=== PATIENT | male | born 1955 | race Caucasian/White ===

== ENCOUNTER 2024-03-28 12:52 | Outpatient (AMB) | payer MEDICARE, BC, SELFPAY ==
--- NOTE | 2024-03-28 13:00 | A.OFFVIS_ITS ---
Vital Signs 03/28/24 13:10 Height 5 ft 7 in Weight 153 lb 6 oz BMI 24.0 BP 112/76 Blood Pressure Location Rt brachial Position Sitting Respiration 16 Pulse 85 Pulse Source Pulse Oximeter Pulse Oximetry (%) 97 Oxygen Delivery Method Room Air Intake Visit Reasons: ENP: Progressive supranuclear palsy - Confirmed Intake Note: Pt presents to the office for new pt evaluation for progressive supranuclear palsy. Academic Affairs Assistant Required: No Allergies No Known Allergies Allergy (Verified 03/28/24 13:09) Medication List - Last Reconciled 03/28/24 by Divya Nolasco MD carbidopa-levodopa 25-100 mg 1 tab PO QID multivitamin 1 tab PO DAILY psyllium husk (Daily Fiber) 0.4 grams PO DAILY pyridoxine (vitamin B6) 10 mg PO DAILY rivastigmine tartrate 3 mg PO BID Saccharomyces boulardii (Daily Probiotic (S. boulardii)) 250 mg PO BID trazodone 25 mg PO DAILY HPI Comments Details: 68y/o male comes for further management of Progressive Supranuclear Palsy . He was diagnosed by Dr. Small in 2021 when he presented with unsteady gait, falls etc.He was started on carbidopa/levodopa . He later saw Dr. Padron at [facility] . He had multiple scans and ? skin biopsy. He lives with his daughter since 2022 He reports mild memory issues.He has mild word finding difficulties and stutters, Sleep is ok .He has vivid dreams and says woke up one night laughing. His mood is Ok and he is less motivated. He goes to weekly card games, exercises.He has excessive drooling Speech- softer, stutters He has difficulty with hand writing, using utensils, dressing , showering. His gait is slow and off balance . He has frequent falls- last fall was 3 weeks ago- he played volleyball in his back yard. No dizziness , no double vision . He denies constipation He has urinary urgency He denies hallucinations He had mild sleep apnea. [facility] Medical History (Updated 03/28/24 @ 13:43 by Divya Nolasco MD) Cognitive change Parkinsonism Insomnia IBS (irritable bowel syndrome) BPH (benign prostatic hyperplasia) Diverticulitis Family History (Updated 03/28/24 @ 13:15 by Shilpa Peña CMA) Father No problems noted. Mother No problems noted. Social History (Updated 03/28/24 @ 13:16 by Shilpa Peña CMA) Household Members: Children Household Members Other:: Daughter- Elisabet Housing: House Alcohol intake: never Patient Tobacco Use Status: Never used Tobacco Use of substances other than those prescribed or required for medical reasons: No Physical Exam Vital Signs: Last Vital Signs Pulse 85 03/28/24 13:10 Resp 16 03/28/24 13:10 BP 112/76 03/28/24 13:10 Pulse Ox 97 03/28/24 13:10 Oxygen Delivery Method Room Air 03/28/24 13:10 BMI result Body Mass Index 24.0 Const General: cooperative, healthy appearing and no acute distress Nutritional Appearance: average body habitus Orientation/consciousness: patient oriented x3 HEENT Head: Yes normal to inspection Neck Other: mild antecollis and restricted range of motion Neuro Other: Severely decreased blink and facial expression Voice- normal, dysprosody Mild arpit postural tremors Fine Finger movements - decreased R>L Alternating hand movements - decreased arpit Hand movements - decreased arpit Foot taps- decreased arpit Arpit cogwheel rigidity gait - stooped, mild slowness and decreased arm swing R>L, off balance General: patient oriented x3 and no focal motor deficits Cranial nerves: Yes CN's II-XII intact bilaterally, Yes Bilaterally intact EOM present, Yes Normal facial strength present and Yes Midline tongue present Cognition (Neuro): normal cognition Gait exam (Neuro): Shuffling gait present Motor exam (neuro): 5/5 motor strength present throughout Deep tendon reflexes (DTR's): Right triceps reflex intensity grade: 2+, Left triceps reflex intensity grade: 2+, Rt Biceps (C5, C6): 2+, Left biceps reflex intensity grade: 2+, Right brachioradialis reflex intensity grade: 2+, Left brachioradialis reflex intensity grade: 2+, Right patellar reflex intensity grade: 2+ and Left patellar reflex intensity grade: 2+ Coordination: [id number] test normal Assessment & Plan Assessment & Plan (1) Parkinsonism: Comment: ? PSP ( had skin biopsy ) c/w PSP as per patient , frequent falls Code(s): G20.C - Parkinsonism, unspecified Category: Medical (2) Cognitive change: Code(s): R41.89 - Other symptoms and signs involving cognitive functions and awareness Category: Medical Plan Increase carbidopa/levodopa 25/100 1 1/2 tabs qid PT for gait Will continue rivastigmine 3mg bid Orders: Orders PT Evaluation and Treatment Today G20.C - Parkinsonism, unspecified Medications: New carbidopa-levodopa 25-100 mg 1.5 tabs PO QID 180 tabs 6RF Coding Level of Care Code New Pt Level 4 (13144) Complex EM visit Add On G2211 Diagnoses Parkinsonism G20.C Cognitive change R41.89
[2024-03-28 13:10] VITALS: BP 112/76; PULSE 85; RESP 16; O2SAT 97; BMI 24.0
== END 2024-03-28 13:56 | disposition home or self-care (01) ==
PROVIDERS: Visit Provider Psychiatry & Neurology Neurology
DX: G20.C Parkinsonism, unspecified (principal); R41.89 Other symptoms and signs involving cognitive functions and awareness
CPT/HCPCS: 99204; G2211

== ENCOUNTER → 2024-03-28 12:52 | Outpatient (BNVA) | payer MEDICARE, BC, SELFPAY | PROVIDERS: Visit Provider Psychiatry & Neurology Neurology | DX: G20.C Parkinsonism, unspecified (principal); R41.89 Other symptoms and signs involving cognitive functions and awareness; Z79.899 Other long term (current) drug therapy | CPT/HCPCS: 99202 ==

== ENCOUNTER 2024-04-19 09:50 | Outpatient (RCR) | payer MEDICARE, BC, SELFPAY ==
--- NOTE | 2024-04-19 11:35 | MHC.PT.EP ---
[facility] [place] Office [place] Office [place] Office [address] Christian Mason [address] [phone] F: [phone] F: [phone] F: [phone] F: [phone] Physical Therapy Plan of Care Date of Evaluation: 04/19/24 Date of Surgery: Diagnosis: Progressive Supranuclear palsy - Gait and balance for parkinsonism. Assessment: Patient is a 68 year old R handed male who presents with s/s consistent with PSP, parkinsonian symptoms. He does not work and has been riddled with falls over the course of the last year. Patient past medical history includes insomnia and IBS. Current impairments include pain, posture, ROM, strength, balance, safety, independence, activity tolerance and functional mobility. Functional limitations include decreased ability to transfer, walk, stand, perform indoor and outdoor activities and negotiate stairs. Patient is motivated with good rehab potential. Skilled PT will address impairments and functional limitations in order to achieve goals. Frequency and Duration: The patient will be seen 2x/week for 5 weeks Short Term Goals: I with HEP - 2 weeks reduced frequency of falls - 3 weeks min tightness in b/l hamstring and gastroc - 3 weeks Custodial Goals: continued reduced frequency of falls - 5 weeks LE strength 4+/5 grossly - 5 weeks SLB > 30 seconds b/l on firm - 5 weeks Treatment Plan: Modalities to reduce pain, spasms and effusion. Manual therapy to restore motion and function. Therapeutic exercise to improve strength and flexibility. Neuromuscular re-education for posture and balance. Therapeutic activities to return to functional activities of daily living. Electronically signed by: Dillan Mcduffie, PT Please sign and return to therapist. Thank you for your referral.
--- NOTE | 2024-07-07 06:37 | MHC.PT.DC ---
[facility] [place] Office [place] Office [place] Office [address] Christian Mason [address] [phone] F: [phone] F: [phone] F: [phone] F: [phone] Physical Therapy Discharge Report Diagnosis: Progressive Supranuclear palsy - Gait and balance for parkinsonism. Date of Surgery: Date of Evaluation: 04/19/24 Date of Discharge: 05/08/24 Treatments to Date: 1 Cancellations to Date: No Shows to Date: Discharge Status: Patient Elected to Stop Discharge Summary: Patient is a 68 year old R handed male who presents with s/s consistent with PSP, parkinsonian symptoms. He does not work and has been riddled with falls over the course of the last year. Patient past medical history includes insomnia and IBS. Current impairments include pain, posture, ROM, strength, balance, safety, independence, activity tolerance and functional mobility. Functional limitations include decreased ability to transfer, walk, stand, perform indoor and outdoor activities and negotiate stairs. Patient is motivated with good rehab potential. Skilled PT will address impairments and functional limitations in order to achieve goals. Electronically signed by: Dillan Mcduffie, PT Please sign and return to therapist. Thank you for your referral.
== END 2024-07-07 06:38 | disposition home or self-care (01) ==
LOC: HO.PTCHIC 09:50
PROVIDERS: PCP Internal Medicine; Visit Provider Psychiatry & Neurology Neurology
DX: G20.C Parkinsonism, unspecified (principal)
CPT/HCPCS: 97163

== ENCOUNTER 2024-09-11 11:21 | Outpatient (AMB) | payer MEDICARE, SELFPAY ==
--- NOTE | 2024-09-11 11:30 | MHC.OFFVIS ---
Vital Signs 09/11/24 11:31 Height 5 ft 7 in Weight 145 lb BMI 22.7 BP 138/84 Blood Pressure Location Lt brachial Position Sitting Pulse 87 Pulse Source Pulse Oximeter Pulse Oximetry (%) 100 Oxygen Delivery Method Room Air Intake Visit Reasons: Progressive supranuclear palsy Allergies No Known Allergies Allergy (Verified 09/11/24 11:33) Medication List - Last Reconciled 09/11/24 by Divya Nolasco MD carbidopa-levodopa 25-100 mg 1.5 tabs PO QID melatonin ER 3 mg PO BEDTIME multivitamin 1 tab PO DAILY psyllium husk (Daily Fiber) 0.4 grams PO DAILY pyridoxine (vitamin B6) 10 mg PO DAILY quetiapine 25 mg PO BEDTIME rivastigmine tartrate 3 mg PO BID Saccharomyces boulardii (Daily Probiotic (S. boulardii)) 250 mg PO BID vibegron (Gemtesa) 75 mg PO DAILY HPI Comments Details: 69y/o male comes for follow up of Progressive Supranuclear Palsy . He has frequent near falls and bumping into gutierrez.He has a walker and cane but does not use it . He feels more foggy . His memory is good. He exercises and also goes out to play cards with his friends and brother. He sleeps OK . History from initial visit- He was diagnosed by Dr. Small in 2021 when he presented with unsteady gait, falls etc.He was started on carbidopa/levodopa . He later saw Dr. Padron at [facility] . He had multiple scans and ? skin biopsy. He lives with his daughter since 2022 He reports mild memory issues.He has mild word finding difficulties and stutters, Sleep is ok .He has vivid dreams and says woke up one night laughing. His mood is Ok and he is less motivated. He goes to weekly card games, exercises.He has excessive drooling Speech- softer, stutters He has difficulty with hand writing, using utensils, dressing , showering. His gait is slow and off balance . He has frequent falls- last fall was 3 weeks ago- he played volleyball in his back yard. No dizziness , no double vision . He denies constipation He has urinary urgency He denies hallucinations He had mild sleep apnea. [facility] Medical History Cognitive change Parkinsonism Insomnia IBS (irritable bowel syndrome) BPH (benign prostatic hyperplasia) Diverticulitis Family History Father No problems noted. Mother No problems noted. Social History Household Members: Children Household Members Other:: Daughter- Elisabet Housing: House Alcohol intake: never Patient Tobacco Use Status: Never used Tobacco Physical Exam Vital Signs: Last Vital Signs Pulse 87 09/11/24 11:31 BP 138/84 09/11/24 11:31 Pulse Ox 100 09/11/24 11:31 Oxygen Delivery Method Room Air 09/11/24 11:31 BMI result Body Mass Index 22.7 Const General: cooperative, healthy appearing and no acute distress Nutritional Appearance: average body habitus Orientation/consciousness: patient oriented x3 HEENT Head: Yes normal to inspection Neck Other: mild antecollis and restricted range of motion Neuro Other: Severely decreased blink and facial expression Voice- normal, dysprosody Mild arpit postural tremors Fine Finger movements - decreased R>L Alternating hand movements - decreased arpit Hand movements - decreased arpit Foot taps- decreased arpit Arpit cogwheel rigidity gait - stooped, mild slowness and decreased arm swing R>L, off balance General: patient oriented x3 and no focal motor deficits Cranial nerves: Yes CN's II-XII intact bilaterally, Yes Bilaterally intact EOM present, Yes Normal facial strength present and Yes Midline tongue present Cognition (Neuro): normal cognition Gait exam (Neuro): Shuffling gait present Motor exam (neuro): 5/5 motor strength present throughout Coordination: [id number] test normal Orientation What is the (year) (season) (date) (day) (month)?: year, season, date, day and month Where are we (state) (county) (town or city) (hospital) (floor)?: state, county, town or city, hospital/clinic and floor Registration Name of 3 unrelated objects clearly and slowly, then ask patient to repeat all 3 of them. (1st repeat determines score. Make sure they can repeat all three): object 1, object 2 and object 3 Attention & Calculation (CHOOSE ONE) Spell WORLD backwards (DLROW): 5 letters Recall Ask patient to repeat the 3 items from question #3.: object 1 and object 2 Language Show patient a wristwatch & ask what it is. Repeat for pencil.: watch and pencil Ask the patient to repeat the phrase 'No ifs, ands, or buts' after you.: correct Ask the patient to 'take a piece of paper with their right hand' 'fold paper in half' 'place paper on floor': take paper in right hand, fold paper in half and place paper on floor Print the sentence 'CLOSE YOUR EYES' on a piece. If patient actually closes eyes then score.: followed written direction Give patient a blank piece of paper & ask to write a sentence. Score if it contains a noun & verb.: sentence contains subject and verb Ask patient to copy figure of intersecting pentagons exactly. Score if all 10 angles & 2 intersects are included.: all 10 angles present & 2 are intersected Score Score: 29 Assessment & Plan Assessment & Plan (1) Parkinsonism: Comment: ( had skin biopsy ) c/w PSP as per patient , frequent falls Code(s): G20.C - Parkinsonism, unspecified Category: Medical Qualifiers: Parkinsonism type: primary Parkinsonism Qualified Code(s): G20.C - Parkinsonism, unspecified (2) Cognitive change: Code(s): R41.89 - Other symptoms and signs involving cognitive functions and awareness Category: Medical Plan Continue carbidopa/levodopa 25/100 - 1.5 tabs qid PT for gait- continues to do his exercises. Will continue rivastigmine 3mg bid discussed about using a walker to prevent falls Coding Level of Care Code Est Pt Level 4 (98542) Complex EM visit Add On G2211 Diagnoses Primary parkinsonism G20.C Parkinsonism type: primary Parkinsonism Cognitive change R41.89
[2024-09-11 11:31] VITALS: BP 138/84; PULSE 87; O2SAT 100; BMI 22.7
--- OUTSIDE RECORDS SUMMARY | 2024-09-11 13:07 | XMS_ITS | Clinical Summary ---
Author Organization Unknown Care Team Providers Care Billing Auditor Name Role Phone JOE JULIO, ABDELRAHMAN Unavailable Unavailable CHERELLE RN, TRAV Unavailable Unavailable YANET PT, ALEX Unavailable Unavailable Payers Payer Name Policy Type Policy Number Effective Date Expira tion Date MEDICARE - [place] - PDGM [id number] Problems Condition Name Condition Details Condition Category Status Onset Date Resolution Date Last Treatment Date Treating Clinician Comments COVID-19 Active 09-06 00:00: 00 PROGRESSIVE SUPRANUCLEAR OPHTHALMOPLE ROBERT Active 09-06 00:00: 00 GASTRO-ESOPH AGEAL REFLUX DISEASE WITHOUT ESOPHAGITIS Active 09-06 00:00: 00 PARKINSON'S DIS W/O DYSKINESIA, W/O MENTION OF FLUCTUATIONS Active 09-06 00:00: 00 PERSONAL HISTORY OF PNEUMONIA (RECURRENT) Active 09-06 00:00: 00 Allergies, Adverse Reactions, Alerts Allergy Name Allergy Type Status Severity Reaction(s) Onset Date Inactive Date Treating Clinician Comments SHELL FISH Propensity to adverse reactions Active 2024-04 08:54:0 8 Medications Ordered Medication Name Filled Medication Name Start Date Stop Date Current Medication? Ordering Clinician Indication Dosage Frequency Signature (SIG) Comments Components azithromyci n 250 mg tablet 04-30 00:00: 00 05-05 23:59 :00 No [id number] 1 tablet DAILY 1 tablet DAILY (route: oral) Med Classific ation: Anti-Infe ctive Agents prednisone 20 mg tablet 04-30 00:00: 00 05-05 23:59 :00 No [id number] 2 tablet DAILY 2 tablet DAILY (route: oral) Med Classific ation: Endocrine quetiapine 25 mg tablet 04-10 00:00: 00 05-04 00:00 :00 No [id number] Per instruc tions Per instructio ns (route: oral) Med Classific ation: Central Nervous System Agents trazodone 50 mg tablet 04-06 00:00: 00 Yes [id number] 1 tablet DAILY AT BEDTIME 1 tablet DAILY AT BEDTIME (route: oral) Med Classific ation: Central Nervous System Agents carbidopa 25 mg-levodopa 100 mg disintegrat ing tablet 05-04 00:00: 00 Yes [id number] 1 tablet 4 TIMES DAILY 1 tablet 4 TIMES DAILY (route: oral) Med Classific ation: Central Nervous System Agents melatonin 3 mg capsule 05-04 00:00: 00 Yes [id number] 1 capsule BEDTIME 1 capsule BEDTIME (route: oral) Med Classific ation: Central Nervous System Agents psyllium oral powder 05-04 00:00: 00 Yes [id number] Per instruc tions 2 TIMES DAILY Per instructio ns 2 TIMES DAILY (route: oral) Med Classific ation: Gastroint estinal Therapy Agents pyridoxine (vitamin B6) 100 mg tablet 05-04 00:00: 00 Yes [id number] 1 tablet DAILY 1 tablet DAILY (route: oral) Med Classific ation: Electroly te Balance-N utritiona l Products rivastigmin e 1.5 mg capsule 05-04 00:00: 00 Yes [id number] 1 capsule 2 TIMES DAILY 1 capsule 2 TIMES DAILY (route: oral) Med Classific ation: Cognitive Disorder Therapy Vitamin C 1,000 mg tablet 05-04 00:00: 00 Yes [id number] 1 tablet DAILY 1 tablet DAILY (route: oral) Med Classific ation: Electroly te Balance-N utritiona l Products Vitamin D3 50 mcg (2,000 unit) capsule 05-04 00:00: 00 Yes [id number] 1 capsule DAILY 1 capsule DAILY (route: oral) Med Classific ation: Electroly te Balance-N utritiona l Products Gemtesa 75 mg tablet 05-24 00:00: 00 Yes [id number] 1 tablet DAILY 1 tablet DAILY (route: oral) Med Classific ation: Genitouri nary Therapy Seroquel 25 mg tablet 05-24 00:00: 00 Yes [id number] 1 tablet DAILY 1 tablet DAILY (route: oral) Med Classific ation: Central Nervous System Agents Immunizations Ordered Immunization Name Filled Immunization Name Date Status Comments Refusal Reason COVID-19, COVID-19 2024-05-04 00:00:00 Vital Signs Vital Name Observation Time Observation Value Commen ts Temperature 2024-06-28 09:22:00.000 97.8 [degF] Temperature 2024-06-21 09:30:00.000 97.3 [degF] Temperature 2024-06-14 08:56:00.000 97.8 [degF] Temperature 2024-06-06 12:24:00.000 97.3 [degF] Temperature 2024-06-01 12:24:00.000 97.3 [degF] Temperature 2024-05-30 13:35:00.000 97.6 [degF] Temperature 2024-05-24 11:45:00.000 97.2 [degF] Temperature 2024-05-17 11:47:00.000 97.9 [degF] Temperature 2024-05-16 09:07:00.000 97.2 [degF] Temperature 2024-05-10 08:53:00.000 97.3 [degF] Temperature 2024-05-10 08:29:00.000 97.2 [degF] Temperature 2024-05-04 09:05:00.000 97.8 [degF] BMI (%) 2024-05-04 09:05:00.000 24 kg/m2 Height 2024-05-04 09:05:00.000 67 [in_us] Pulse 2024-06-28 09:22:00.000 80 /min Pulse 2024-06-21 09:30:00.000 82 /min Pulse 2024-06-14 08:56:00.000 70 /min Pulse 2024-06-06 12:24:00.000 95 /min Pulse 2024-06-01 12:24:00.000 79 /min Pulse 2024-05-30 13:35:00.000 84 /min Pulse 2024-05-24 15:33:00.000 88 /min Pulse 2024-05-24 11:45:00.000 77 /min Pulse 2024-05-17 11:47:00.000 75 /min Pulse 2024-05-16 09:07:00.000 66 /min Pulse 2024-05-10 08:53:00.000 70 /min Pulse 2024-05-10 08:29:00.000 66 /min Pulse 2024-05-04 09:05:00.000 74 /min O2 Saturation (%) 2024-06-28 09:23:00.000 98 % O2 Saturation (%) 2024-06-21 09:30:00.000 100 % O2 Saturation (%) 2024-06-14 08:57:00.000 97 % O2 Saturation (%) 2024-06-06 12:24:00.000 98 % O2 Saturation (%) 2024-06-01 12:24:00.000 97 % O2 Saturation (%) 2024-05-30 13:35:00.000 100 % O2 Saturation (%) 2024-05-24 15:33:00.000 98 % O2 Saturation (%) 2024-05-24 11:45:00.000 99 % O2 Saturation (%) 2024-05-17 11:47:00.000 100 % O2 Saturation (%) 2024-05-16 09:07:00.000 100 % O2 Saturation (%) 2024-05-10 08:54:00.000 95 % O2 Saturation (%) 2024-05-10 08:29:00.000 100 % O2 Saturation (%) 2024-05-04 09:07:00.000 97 % Respirations 2024-06-28 09:22:00.000 18 /min Respirations 2024-06-21 09:30:00.000 18 /min Respirations 2024-06-14 08:56:00.000 18 /min Respirations 2024-06-06 12:24:00.000 16 /min Respirations 2024-06-01 12:24:00.000 16 /min Respirations 2024-05-30 13:35:00.000 17 /min Respirations 2024-05-24 15:33:00.000 18 /min Respirations 2024-05-24 11:45:00.000 18 /min Respirations 2024-05-17 11:47:00.000 20 /min Respirations 2024-05-16 09:07:00.000 16 /min Respirations 2024-05-10 08:53:00.000 18 /min Respirations 2024-05-10 08:29:00.000 17 /min Respirations 2024-05-04 09:05:00.000 18 /min Weight (lbs) 2024-05-04 09:05:00.000 155 [lb_av] Systolic Blood Pressure 2024-06-28 09:22:00.000 120 mm [Hg] Systolic Blood Pressure 2024-06-21 09:30:00.000 116 mm [Hg] Systolic Blood Pressure 2024-06-14 08:56:00.000 120 mm [Hg] Systolic Blood Pressure 2024-06-06 12:24:00.000 130 mm [Hg] Systolic Blood Pressure 2024-06-01 12:24:00.000 108 mm [Hg] Systolic Blood Pressure 2024-05-30 13:35:00.000 132 mm [Hg] Systolic Blood Pressure 2024-05-24 15:33:00.000 100 mm [Hg] Systolic Blood Pressure 2024-05-24 11:45:00.000 130 mm [Hg] Systolic Blood Pressure 2024-05-17 11:47:00.000 112 mm [Hg] Systolic Blood Pressure 2024-05-16 09:07:00.000 92 mm[ Hg] Systolic Blood Pressure 2024-05-10 08:53:00.000 114 mm [Hg] Systolic Blood Pressure 2024-05-10 08:29:00.000 108 mm [Hg] Systolic Blood Pressure 2024-05-04 09:05:00.000 110 mm [Hg] Diastolic Blood Pressure 2024-06-28 09:22:00.000 70 mm [Hg] Diastolic Blood Pressure 2024-06-21 09:30:00.000 68 mm [Hg] Diastolic Blood Pressure 2024-06-14 08:56:00.000 70 mm [Hg] Diastolic Blood Pressure 2024-06-06 12:24:00.000 66 mm [Hg] Diastolic Blood Pressure 2024-06-01 12:24:00.000 72 mm [Hg] Diastolic Blood Pressure 2024-05-30 13:35:00.000 78 mm [Hg] Diastolic Blood Pressure 2024-05-24 15:33:00.000 64 mm [Hg] Diastolic Blood Pressure 2024-05-24 11:45:00.000 72 mm [Hg] Diastolic Blood Pressure 2024-05-17 11:47:00.000 62 mm [Hg] Diastolic Blood Pressure 2024-05-16 09:07:00.000 60 mm [Hg] Diastolic Blood Pressure 2024-05-10 08:53:00.000 60 mm [Hg] Diastolic Blood Pressure 2024-05-10 08:29:00.000 62 mm [Hg] Diastolic Blood Pressure 2024-05-04 09:05:00.000 60 mm [Hg] Plan of Treatment Planned Activity Planned Date Details Comments Future Scheduled Test SKILLED NU RSE TO EVALUATE PATIENT, IDENTIFY PRIMARY AND CO-MORBID CONDITIONS CODED PER CODING GUIDELINES, AND DEVELOP PATIENT SPECIFIC PLAN OF CARE THAT INCLUDES PATIENT GOAL FOR HOME HEALTH. [code = SKILLED NURSE TO EVALUATE PATIENT, IDENTIFY PRIMARY AND CO-MORBID CONDITIONS CODED PER CODING GUIDELINES, AND DEVELOP PATIENT SPECIFIC PLAN OF CARE THAT INCLUDES PATIENT GOAL FOR HOME HEALTH.] Future Scheduled Test SKILLED NU RSE TO REVIEW PATIENT MEDICATIONS. INSTRUCT PATIENT/CAREGIVER ON MONITORING OF EFFECTIVENESS, ADVERSE DRUG REACTIONS, SIDE EFFECTS OF ALL MEDICATIONS (PRESCRIPTION/-OTC), AND HOW AND WHEN TO REPORT PROBLEMS. [code = SKILLED NURSE TO REVIEW PATIENT MEDICATIONS. INSTRUCT PATIENT/CAREGIVER ON MONITORING OF EFFECTIVENESS, ADVERSE DRUG REACTIONS, SIDE EFFECTS OF ALL MEDICATIONS (PRESCRIPTION/-OTC), AND HOW AND WHEN TO REPORT PROBLEMS.] Future Scheduled Test SKILLED NU RSE FOR O/A, TEACHING RELATED TO DIVERTICULOSIS, GERD FOR EARLY IDENTIFICATION OF EXACERBATION OF DISEASE PROCESS. [code = SKILLED NURSE FOR O/A, TEACHING RELATED TO DIVERTICULOSIS, GERD FOR EARLY IDENTIFICATION OF EXACERBATION OF DISEASE PROCESS.] Future Scheduled Test SKILLED NU RSE FOR O/A OF RESPIRATORY SYSTEM TO IDENTIFY CHANGES ASSOCIATED WITH EXACERBATION AND TO PROVIDE SKILLED TEACHING ON MANAGEMENT OF COVID DISEASE PROCESS. [code = SKILLED NURSE FOR O/A OF RESPIRATORY SYSTEM TO IDENTIFY CHANGES ASSOCIATED WITH EXACERBATION AND TO PROVIDE SKILLED TEACHING ON MANAGEMENT OF COVID DISEASE PROCESS.] Future Scheduled Test SKILLED NU RSE FOR O/A TO IDENTIFY CHANGES ASSOCIATED WITH PSP AND PROVIDE INSTRUCTION RELATED TO SAFETY MEASURES TO PREVENT INJURY SECONDARY TO IMPAIRED NEUROLOGICAL STATUS. SKILLED NURSE TO REPORT SIGNIFICANT CHANGES OF NEUROLOGIC STATUS TO PHYSICIAN FOR EARLY INTERVENTION. [code = SKILLED NURSE FOR O/A TO IDENTIFY CHANGES ASSOCIATED WITH PSP AND PROVIDE INSTRUCTION RELATED TO SAFETY MEASURES TO PREVENT INJURY SECONDARY TO IMPAIRED NEUROLOGICAL STATUS. SKILLED NURSE TO REPORT SIGNIFICANT CHANGES OF NEUROLOGIC STATUS TO PHYSICIAN FOR EARLY INTERVENTION.] Future Scheduled Test PHYSICAL T HERAPIST TO EVALUATE PATIENT FOR EXERCISE [code = PHYSICAL THERAPIST TO EVALUATE PATIENT FOR EXERCISE] Future Scheduled Test SKILLED NU RSE TO INSTRUCT PATIENT/CAREGIVER ON SIGNS AND SYMPTOMS AND METHODS TO MANAGE PARKINSON'S DISEASE PROGRESSION. [code = SKILLED NURSE TO INSTRUCT PATIENT/CAREGIVER ON SIGNS AND SYMPTOMS AND METHODS TO MANAGE PARKINSON'S DISEASE PROGRESSION.] Future Scheduled Test SKILLED NU RSE FOR O/A AND SKILLED TEACHING RELATED TO ALTERED SKIN INTEGRITY [code = SKILLED NURSE FOR O/A AND SKILLED TEACHING RELATED TO ALTERED SKIN INTEGRITY ] Future Scheduled Test VIRTUAL SIT FREQUENCY: 1-6 PER WEEK X 3 WEEKS AND 6 PRN VIRTUAL VISITS MAY BE PERFORMED UTILIZING [employer] SYSTEM TO OPTIMIZE SKILLED SERVICES FURNISHED ON THE PLAN OF CARE. SKILLED NURSE TO ESTABLISH SUPPORT MEASURES TO MINIMIZE RISK OF REHOSPITALIZATION, AND INSTRUCT PATIENT/CAREGIVER ON METHODS TO REDUCE AVOIDABLE HOSPITALIZATION. [code = VIRTUAL VISIT FREQUENCY: 1-6 PER WEEK X 3 WEEKS AND 6 PRN VIRTUAL VISITS MAY BE PERFORMED UTILIZING [employer] SYSTEM TO OPTIMIZE SKILLED SERVICES FURNISHED ON THE PLAN OF CARE. SKILLED NURSE TO ESTABLISH SUPPORT MEASURES TO MINIMIZE RISK OF REHOSPITALIZATION, AND INSTRUCT PATIENT/CAREGIVER ON METHODS TO REDUCE AVOIDABLE HOSPITALIZATION.] Future Scheduled Test PATIENT MURRAY S A RISK OF HOSPITALIZATION AND ED USE. SKILLED NURSE TO ESTABLISH SUPPORT MEASURES TO MINIMIZE RISK OF HOSPITALIZATION AND ED USE, AND INSTRUCT PATIENT/CAREGIVER ON METHODS TO REDUCE AVOIDABLE HOSPITALIZATION AND ED USE. [code = PATIENT HAS A RISK OF HOSPITALIZATION AND ED USE. SKILLED NURSE TO ESTABLISH SUPPORT MEASURES TO MINIMIZE RISK OF HOSPITALIZATION AND ED USE, AND INSTRUCT PATIENT/CAREGIVER ON METHODS TO REDUCE AVOIDABLE HOSPITALIZATION AND ED USE.] Future Scheduled Test SKILLED NU RSE TO PROVIDE INSTRUCTION TO PATIENT/CAREGIVER RELATED TO DISCHARGE PLANNING. [code = SKILLED NURSE TO PROVIDE INSTRUCTION TO PATIENT/CAREGIVER RELATED TO DISCHARGE PLANNING.] Future Scheduled Test SKILLED NU RSE TO PERFORM HOME SAFETY AND FALL ASSESSMENT AND PROVIDE INSTRUCTION TO IMPLEMENT HOME SAFETY AND FALL PREVENTION STRATEGIES. [code = SKILLED NURSE TO PERFORM HOME SAFETY AND FALL ASSESSMENT AND PROVIDE INSTRUCTION TO IMPLEMENT HOME SAFETY AND FALL PREVENTION STRATEGIES.] Future Scheduled Test SKILLED NU RSE FOR OBSERVATION AND ASSESSMENT OF PATIENTS PAIN LEVEL AND EFFECTIVENESS OF PAIN MANAGEMENT REGIMEN. SKILLED NURSE TO INSTRUCT PATIENT/CAREGIVER REGARDING PHARMACOLOGIC AND NON-PHARMACOLOGIC PAIN CONTROL MEASURES. SKILLED NURSE TO REPORT TO PHYSICIAN IF PAIN IS UNCONTROLLED WITH CURRENT PAIN MANAGEMENT REGIMEN. [code = SKILLED NURSE FOR OBSERVATION AND ASSESSMENT OF PATIENTS PAIN LEVEL AND EFFECTIVENESS OF PAIN MANAGEMENT REGIMEN. SKILLED NURSE TO INSTRUCT PATIENT/CAREGIVER REGARDING PHARMACOLOGIC AND NON-PHARMACOLOGIC PAIN CONTROL MEASURES. SKILLED NURSE TO REPORT TO PHYSICIAN IF PAIN IS UNCONTROLLED WITH CURRENT PAIN MANAGEMENT REGIMEN.] Future Scheduled Test SKILLED NU RSE TO ASSESS PATIENT'S SKIN INTEGRITY AND INSTRUCT PATIENT/CAREGIVER ON MEASURES TO PREVENT PRESSURE ULCERS. [code = SKILLED NURSE TO ASSESS PATIENT'S SKIN INTEGRITY AND INSTRUCT PATIENT/CAREGIVER ON MEASURES TO PREVENT PRESSURE ULCERS.] Future Scheduled Test PHYSICAL T HERAPIST TO EVALUATE PATIENT SECONDARY TO FUNCTIONAL DEFICITS/SAFETY CONCERNS. PHYSICAL THERAPY TO ESTABLISH /UPGRADE/DOWNGRADE THERAPEUTIC EXERCISE PROGRAM AND INSTRUCT PATIENT/CAREGIVER ON EXERCISE PRECAUTIONS WITH WRITTEN HOME PROGRAM. MAY INCLUDE AROM, RROM APPROPRIATE TO IMPROVE FUNCTIONAL STRENGTH AND RANGE OF MOTION. PHYSICAL THERAPY TO INSTRUCT PATIENT/CAREGIVER ON GAIT TRAINING TECHNIQUES USING APPROPRIATE ASSISTIVE DEVICE, PROPER BODY MECHANICS TO IMPROVE MOBILITY, AND PREVENT INJURY OF PATIENT AND/OR CAREGIVER. PHYSICAL THERAPY TO ASSESS AND RECOMMEND HOME SAFETY ADAPTATIONS AND EDUCATE PATIENT /CAREGIVER ON FALL PREVENTION STRATEGIES. PHYSICAL THERAPY TO INSTRUCT PATIENT/CAREGIVER ON BALANCE AND BALANCE STRATEGIES TO IMPROVE SAFE MOBILITY AND REDUCE RISK FOR FALL AND INJURY INCLUDING PARTICIPATION IN [facility] BALANCE SPECIALTY PROGRAM SUMMARY OF THERAPY EVAL/ASSESSMENT FINDINGS AND REASON(S) SKILLS OF A THERAPIST ARE INDICATED: PT WAS SEEN FOR INITIAL PHYSICAL THERAPY VISIT AND HOME SAFETY ASSESSMENT COMPLETED. PT IS A 68 YEAR OLD WAS WAS RECENTLY REFERRED TO PHYSICAL THERAPY SECONDARY TO COVID. PT HAS DX WITH SUPRANUCLEAR PALSY WHICH IMPACTS HIS BALANCE. PT REPORTS 20 FALLS IN PAST 3 MONTHS BUT NOT USING A DEVICE. PT STATES THAT HE FELT STABLE BUT QUESTION EARLY DEMENTIA PT NOT USING GOOD JUDGEMENT. NOT USING ANY DEVICE. PLOF. 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 HEP INITIATED FOR STRENGTHENING. PT HAS A ROUTINE FROM [employer] [facility] FOR BALANCE BUT LITTLE STRENGTHENING. PT AMB WITHOUT A DEVICE BUT AGREEABLE TO START USING RW. TRANSFERS ARE UNSTEADY INITIALLY AND COULD BENEFIT FROM RW NEARBY. PT SLEEPS IN HOSPITAL BED. PT IS AN APPROPRIATE CANDIDATE FOR SKILLED PHYSICAL THERAPY TO ADDRESS PHYSICAL IMPAIRMENTS AND FUNCTIONAL LIMITATIONS. PATIENT VERBALIZES AGREEMENT WITH POC. NOTIFIED. [code = PHYSICAL THERAPIST TO EVALUATE PATIENT SECONDARY TO FUNCTIONAL DEFICITS/SAFETY CONCERNS. PHYSICAL THERAPY TO ESTABLISH /UPGRADE/DOWNGRADE THERAPEUTIC EXERCISE PROGRAM AND INSTRUCT PATIENT/CAREGIVER ON EXERCISE PRECAUTIONS WITH WRITTEN HOME PROGRAM. MAY INCLUDE AROM, RROM APPROPRIATE TO IMPROVE FUNCTIONAL STRENGTH AND RANGE OF MOTION. PHYSICAL THERAPY TO INSTRUCT PATIENT/CAREGIVER ON GAIT TRAINING TECHNIQUES USING APPROPRIATE ASSISTIVE DEVICE, PROPER BODY MECHANICS TO IMPROVE MOBILITY, AND PREVENT INJURY OF PATIENT AND/OR CAREGIVER. PHYSICAL THERAPY TO ASSESS AND RECOMMEND HOME SAFETY ADAPTATIONS AND EDUCATE PATIENT /CAREGIVER ON FALL PREVENTION STRATEGIES. PHYSICAL THERAPY TO INSTRUCT PATIENT/CAREGIVER ON BALANCE AND BALANCE STRATEGIES TO IMPROVE SAFE MOBILITY AND REDUCE RISK FOR FALL AND INJURY INCLUDING PARTICIPATION IN [facility] BALANCE SPECIALTY PROGRAM SUMMARY OF THERAPY EVAL/ASSESSMENT FINDINGS AND REASON(S) SKILLS OF A THERAPIST ARE INDICATED: PT WAS SEEN FOR INITIAL PHYSICAL THERAPY VISIT AND HOME SAFETY ASSESSMENT COMPLETED. PT IS A 68 YEAR OLD WAS WAS RECENTLY REFERRED TO PHYSICAL THERAPY SECONDARY TO COVID. PT HAS DX WITH SUPRANUCLEAR PALSY WHICH IMPACTS HIS BALANCE. PT REPORTS 20 FALLS IN PAST 3 MONTHS BUT NOT USING A DEVICE. PT STATES THAT HE FELT STABLE BUT QUESTION EARLY DEMENTIA PT NOT USING GOOD JUDGEMENT. NOT USING ANY DEVICE. PLOF. 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 HEP INITIATED FOR STRENGTHENING. PT HAS A ROUTINE FROM [facility] FOR BALANCE BUT LITTLE STRENGTHENING. PT AMB WITHOUT A DEVICE BUT AGREEABLE TO START USING RW. TRANSFERS ARE UNSTEADY INITIALLY AND COULD BENEFIT FROM RW NEARBY. PT SLEEPS IN HOSPITAL BED. PT IS AN APPROPRIATE CANDIDATE FOR SKILLED PHYSICAL THERAPY TO ADDRESS PHYSICAL IMPAIRMENTS AND FUNCTIONAL LIMITATIONS. PATIENT VERBALIZES AGREEMENT WITH POC. JULIO NOTIFIED. ] Goal 2024-06-28 Patient Goal - T O STAY OUT OF THE HOSPITAL Goal Provider Goal - A PLAN OF CARE WILL BE ESTABLISHED THAT MEETS PATIENT'S [facility]PC NEEDS AND INCLUDES PATIENT GOAL FOR HOME HEALTH. Goal Provider Goal - PATIENT/CAREGIVER WILL VERBALIZE UNDERSTANDING OF EDUCATION PROVIDED ON MEDICATIONS BY THE END OF THE CERTIFICATION PERIOD. Goal Provider Goal - EXACERBATIONS OF GASTROINTESTINAL DISEASE WILL BE PROMPTLY IDENTIFIED AND INTERVENTIONS IMPLEMENTED TO MINIMIZE RISKS TO PATIENT BY END OF EPISODE. Goal Provider Goal - PATIENT/CAREGIVER WILL VERBALIZE/DEMONSTRATE MANAGEMENT OF RESPIRATORY DISEASE PROCESS. CHANGES IN RESPIRATORY STATUS WILL BE IDENTIFIED AND REPORTED TO PHYSICIAN FOR PROMPT INTERVENTION THROUGHOUT THE CERTIFICATION PERIOD. Goal Provider Goal - CHANGES IN NEUROLOGIC STATUS WILL BE IDENTIFIED AND REPORTED TO THE PHYSICIAN FOR PROMPT INTERVENTION OF ASSOCIATED RISK. PATIENT/CAREGIVER WILL VERBALIZE/DEMONSTRATE APPROPRIATE SAFETY MEASURES TO PREVENT INJURY BY THE END OF THE CERTIFICATION PERIOD. Goal Provider Goal - A PHYSICAL THERAPY EVALUATION TO BE COMPLETED WITH RECOMMENDATIONS AND/OR WRITTEN PLAN OF TREATMENT ESTABLISHED FOR PHYSICIANS SIGNATURE. Goal Provider Goal - PATIENT/CAREGIVER WILL VERBALIZE SIGNS AND SYMPTOMS OF PARKINSON'S DISEASE AND DEMONSTRATE METHODS TO MANAGE DISEASE PROCESS BY END OF CERTIFICATION PERIOD. Goal Provider Goal - PATIENT/CAREGIVER WILL VERBALIZE/DEMONSTRATE UNDERSTANDING OF TEACHING RELATED TO ALTERED SKIN INTEGRITY BY END OF CERTIFICATION PERIOD. Goal Provider Goal - PATIENT/CAREGIVER WILL UTILIZE VIRTUAL VISITS TO ACHIEVE GOALS OUTLINED ON THE PLAN OF CARE. PATIENT WILL HAVE SUPPORT MEASURES ESTABLISHED TO PREVENT HOSPITALIZATION AND PATIENT/CAREGIVER WILL VERBALIZE/DEMONSTRATE METHODS TO REDUCE AVOIDABLE HOSPITALIZATION THROUGHOUT THE CERTIFICATION PERIOD. Goal Provider Goal - PATIENT WILL HAVE SUPPORT MEASURES ESTABLISHED TO PREVENT HOSPITALIZATION AND ED USE AND PATIENT/CAREGIVER WILL VERBALIZE/DEMONSTRATE METHODS TO REDUCE AVOIDABLE HOSPITALIZATION AND ED USE BY END OF EPISODE. Goal Provider Goal - PATIENT/CAREGIVER WILL VERBALIZE UNDERSTANDING OF DISCHARGE PLANNING INSTRUCTIONS BY DATE OF DISCHARGE. Goal Provider Goal - PATIENT/CAREGIVER WILL VERBALIZE/DEMONSTRATE EFFECTIVE HOME SAFETY AND FALL PREVENTION STRATEGIES THROUGHOUT CERTIFICATION PERIOD. Goal Provider Goal - PATIENT/CAREGIVER WILL DEMONSTRATE UNDERSTANDING OF PHARMACOLOGIC AND NONPHARMACOLOGIC PAIN CONTROL MEASURES AND PATIENT WILL HAVE IMPROVEMENT IN PAIN INTERFERING WITH ACTIVITY EVIDENCED BY PAIN CONTROLLED AT LEVEL OF 7 OR LESS BY END OF CERTIFICATION PERIOD. Goal Provider Goal - PATIENT/CAREGIVER WILL VERBALIZE UNDERSTANDING OF PRESSURE ULCER PREVENTION BY END OF THE EPISODE. Goal Provider Goal - PHYSICAL THERAPY EVALUATION TO BE COMPLETED WITH RECOMMENDATIONS AND/OR WRITTEN TREATMENT PLAN OF CARE ESTABLISHED FOR THE PHYSICIANS SIGNATURE PATIENT/CAREGIVER WILL PERFORM THERAPEUTIC EXERCISE/S AND DEMONSTRATE PARTICIPATION IN A HOME PROGRAM. PATIENT/CAREGIVER WILL DEMONSTRATE IMPROVED GAIT TECHNIQUES TO MINIMIZE RISK OF INJURY. PATIENT/CAREGIVER WILL DEMONSTRATE/VERBALIZE UNDERSTANDING OF RECOMMENDATIONS TO INCREASE SAFETY IN THE HOME AND FALL PREVENTION. PATIENT/CAREGIVER WILL DEMONSTRATE IMPROVED BALANCE AND REDUCE THE RISK OF FALLS AND INJURY. Reason for Visit INDEPENDENT IN THE HOME Encounters Start Date/Time End Date/Time Encounter Type Admission Type Attending [facility] Care Department Encounter ID Discharge Date Discharge Status Discharge Condition Discharge Reason Percent Goals Met 2024-05-04 00:00:00 2024-06-28 00:00:00 Outpatient [facility]ION [facility] [id number] 2024-06-28 00:00:00 DISCHARGE TO HOME OR SELF CARE INDEPENDEN T IN THE HOME GOALS MET ( ONLY) 85.29
== END 2024-09-11 11:56 | disposition home or self-care (01) ==
PROVIDERS: PCP Internal Medicine; Visit Provider Psychiatry & Neurology Neurology
DX: G20.C Parkinsonism, unspecified (principal); R41.89 Other symptoms and signs involving cognitive functions and awareness
CPT/HCPCS: 99214; G2211

== ENCOUNTER → 2024-09-11 11:21 | Outpatient (BNVA) | payer MEDICARE, SELFPAY | PROVIDERS: PCP Internal Medicine; Visit Provider Psychiatry & Neurology Neurology | DX: G20.C Parkinsonism, unspecified (principal); R41.89 Other symptoms and signs involving cognitive functions and awareness | CPT/HCPCS: 99212 ==

== ENCOUNTER 2025-03-12 10:13 | Outpatient (AMB) | payer MEDICARE, SELFPAY ==
--- NOTE | 2025-03-12 10:13 | A.OFFVIS_ITS ---
Vital Signs 03/12/25 10:14 Height 5 ft 7 in Weight 145 lb BMI 22.7 BP 112/80 Blood Pressure Location Rt brachial Position Sitting Pulse 91 Pulse Source Pulse Oximeter Pulse Oximetry (%) 98 Oxygen Delivery Method Room Air Intake Visit Reasons: Follow Up 6mo Intake Note: Patient presents for Parkinsonism, unspecified Allergies No Known Allergies Allergy (Verified 03/12/25 10:16) Medication List - Last Reconciled 03/12/25 by Divya Nolasco MD carbidopa-levodopa 25-100 mg 2 tabs PO QID melatonin ER 3 mg PO BEDTIME multivitamin 1 tab PO DAILY psyllium husk (Daily Fiber) 0.4 grams PO DAILY pyridoxine (vitamin B6) 10 mg PO DAILY quetiapine 1.5- 2tabs orally bedtime; rivastigmine tartrate 3 mg PO BID Saccharomyces boulardii (Daily Probiotic (S. boulardii)) 250 mg PO BID vibegron (Gemtesa) 75 mg PO DAILY HPI Comments Details: 69y/o male comes for follow up of Progressive Supranuclear Palsy and cognitive disorder.. He has frequent near falls and bumping into gutierrez.He also refuses to use the walker. He is not cooperative with his caregivers. He has multiple falls throughout the day. He lives with his daughter who is a nurse. He feels more foggy . His behavior is worse He sleeps - lot of acting out in sleep..Today he is upset with his daughter History from initial visit- He was diagnosed by Dr. Small in 2021 when he presented with unsteady gait, falls etc.He was started on carbidopa/levodopa . He later saw Dr. Padron at [facility] . He had multiple scans and ? skin biopsy. He lives with his daughter since 2022 He reports mild memory issues.He has mild word finding difficulties and stutters, Sleep is ok .He has vivid dreams and says woke up one night laughing. His mood is Ok and he is less motivated. He goes to weekly card games, exercises.He has excessive drooling Speech- softer, stutters He has difficulty with hand writing, using utensils, dressing , showering. His gait is slow and off balance . He has frequent falls- last fall was 3 weeks ago- he played volleyball in his back yard. No dizziness , no double vision . He denies constipation He has urinary urgency He denies hallucinations He had mild sleep apnea. [facility] Medical History Cognitive change Parkinsonism Insomnia IBS (irritable bowel syndrome) BPH (benign prostatic hyperplasia) Diverticulitis Family History Father No problems noted. Mother No problems noted. Social History Household Members: Children Household Members Other:: Daughter- Elisabet Housing: House Alcohol intake: never Patient Tobacco Use Status: Never used Tobacco Physical Exam Vital Signs: Last Vital Signs Pulse 91 03/12/25 10:14 BP 112/80 03/12/25 10:14 Pulse Ox 98 03/12/25 10:14 Oxygen Delivery Method Room Air 03/12/25 10:14 BMI result Body Mass Index 22.7 Const General: cooperative, healthy appearing and no acute distress Nutritional Appearance: average body habitus Orientation/consciousness: patient oriented x3 HEENT Head: Yes normal to inspection Neck Other: mild antecollis and restricted range of motion Neuro Other: Severely decreased blink and facial expression Voice- normal, dysprosody Mild remy postural tremors Fine Finger movements - decreased R>L Alternating hand movements - decreased remy Hand movements - decreased remy Foot taps- decreased remy Remy cogwheel rigidity gait - stooped, mild slowness and decreased arm swing R>L, off balance General: patient oriented x3 and no focal motor deficits Cranial nerves: Yes CN's II-XII intact bilaterally, Yes Bilaterally intact EOM present, Yes Normal facial strength present and Yes Midline tongue present Cognition (Neuro): normal cognition Gait exam (Neuro): Shuffling gait present Motor exam (neuro): 5/5 motor strength present throughout Coordination: [id number] test normal Assessment & Plan Assessment & Plan (1) Parkinsonism: Comment: ( had skin biopsy ) c/w PSP as per patient , frequent falls Code(s): G20.C - Parkinsonism, unspecified Category: Medical Qualifiers: Parkinsonism type: primary Parkinsonism Qualified Code(s): G20.C - Parkinsonism, unspecified (2) Cognitive change: Comment: with personality changes Code(s): R41.89 - Other symptoms and signs involving cognitive functions and awareness Category: Medical Plan Continue carbidopa/levodopa 25/100 - 1.5 tabs qid Will continue rivastigmine 3mg bid discussed about using a walker to prevent falls Motorized wheel chair Medications: Changed From quetiapine 25 mg PO BEDTIME 30 tabs 0RF To quetiapine 1.5- 2tabs orally bedtime; 60 tabs 6RF From carbidopa-levodopa 25-100 mg 1.5 tabs PO QID 180 tabs 6RF To carbidopa-levodopa 25-100 mg 2 tabs PO QID 240 tabs 6RF Coding Level of Care Code Est Pt Level 4 (49209) Complex EM visit Add On G2211 Diagnoses Primary parkinsonism G20.C Parkinsonism type: primary Parkinsonism Cognitive change R41.89
[2025-03-12 10:14] VITALS: BP 112/80; PULSE 91; O2SAT 98; BMI 22.7
--- OUTSIDE RECORDS SUMMARY | 2025-03-12 10:59 | XMS_ITS | Clinical Summary ---
Author Organization [facility] Address [address] [place] [address] Care Team Providers Care Business [employer] Director Name Role Phone Unavailable Primary Care Provider Unavailabl e Social History Tobacco Use Types Packs/Day Years Used Date Smoking Tobacco: Never Assessed Sex and Gender Information Value Date Recorded Sex Assigned at Not on file Legal Sex Male 7:45 PM EST Gender Identity Not on file Sexual Orientation Not on file Plan of Treatment Health Maintenance Due Date Last Done Comments DTaP,Tdap,and Td Vaccines (1 - Tdap) 1974 Pneumococcal Vaccine: 50+ Ye ars (1 of 1 - PCV) 2005 Zoster Vaccines (1 of 2) 2005 Abdominal Aortic Aneurysm (A AA) Screen 08/08/2022 Cholesterol Screening (Lipid Panel) 08/08/2022 Colorectal Cancer Screening: Colonoscopy 08/08/2022 Depression Screening 08/08/2022 Falls Risk Assessment 08/08/2022 Hepatitis C Screening 08/08/2022 Social Influencers of Health Screening 08/08/2022 COVID-19 Vaccine (1 - 2023-2 5 season) 2024 Influenza Vaccine (#1) 2025 RSV Immunization Adult Patie nts (1 - 1-dose 75+ series) 2030 HIB Vaccines Aged Out No longer eligi ble based on patient's age to complete this topic HPV Vaccines Aged Out No longer eligi ble based on patient's age to complete this topic Hepatitis A Vaccines Aged Out No long er eligible based on patient's age to complete this topic Hepatitis B Vaccines Aged Out No long er eligible based on patient's age to complete this topic IPV Vaccines Aged Out No longer eligi ble based on patient's age to complete this topic MMR Vaccines Aged Out No longer eligi ble based on patient's age to complete this topic Meningococcal ACWY Vaccine Aged Out N o longer eligible based on patient's age to complete this topic Meningococcal B Vaccine Aged Out No l onger eligible based on patient's age to complete this topic RSV Immunization Patients Un gloria 20 months Aged Out No longer eligible b ased on patient's age to complete this topic Varicella Vaccines Aged Out No longer eligible based on patient's age to complete this topic
== END 2025-03-12 10:42 | disposition home or self-care (01) ==
LOC: HO.HSMS 10:13
PROVIDERS: PCP Internal Medicine; Visit Provider Psychiatry & Neurology Neurology
DX: G20.C Parkinsonism, unspecified (principal); R41.89 Other symptoms and signs involving cognitive functions and awareness
CPT/HCPCS: 99214; G2211

== ENCOUNTER → 2025-03-12 10:13 | Outpatient (BNVA) | payer MEDICARE, SELFPAY | PROVIDERS: PCP Internal Medicine; Visit Provider Psychiatry & Neurology Neurology | DX: R41.89 Other symptoms and signs involving cognitive functions and awareness (principal); G20.C Parkinsonism, unspecified; Z79.899 Other long term (current) drug therapy; Z91.81 History of falling | CPT/HCPCS: 99212 ==